=== PATIENT | female | born 1975 | race Two or more races ===

== ENCOUNTER 2024-02-01 08:10 | Outpatient (RCR) | payer MEDICAID, SELFPAY ==
--- NOTE | 2024-02-01 09:04 | CTCFLWUP_ITS ---
[facility] [address] [place], [place] [address] FOLLOW-UP NOTE Date: 02/01/2024 MR#: [id number] Name: SADI TOLEDO : 1975 Dx: C50.312 Malignant neoplasm of lower-inner quadrant of left female breast Identification patient with stage IIa T2N0 triple negative sized tumor 3.3 cm 4 sentinel lymph nodes negative for mets. Completed 4 cycles of AC Taxotere and radiation therapy completed 6300 cGy including E boost to left breast on 10/31/2015. Had bilateral mammogram 08/28/2023 which was benign recommending yearly follow-up. Examined patient's bilateral breasts which were benign with no suspicious masses. Cosmetically the l eft breast appears quite satisfactory. Will see patient in 6 months and do the annual mammogram. Patient reportedly has colonoscopy pending for routine checks.. Electronically signed by: Jean Marie Klein M.D. 02/01/2024 9:01 AM
== END 2024-02-28 23:59 | disposition home or self-care (01) ==
LOC: SCTC 08:10
PROVIDERS: PCP Nurse Practitioner Primary Care; Referring Provider Physician Assistant; Visit Provider Radiology Therapeutic Radiology
DX: Z08 Encounter for follow-up examination after completed treatment for malignant neoplasm (principal); Z85.3 Personal history of malignant neoplasm of breast; Z92.21 Personal history of antineoplastic chemotherapy; Z92.3 Personal history of irradiation
CPT/HCPCS: 99212; G0463

== ENCOUNTER 2024-08-01 08:23 | Outpatient (RCR) | payer MEDICAID, SELFPAY ==
--- NOTE | 2024-08-01 09:11 | CTCFLWUP_ITS ---
[facility] [address] [place], [place] [address] FOLLOW-UP NOTE Date: 08/01/2024 MR#: [id number] Name: SADI TOLEDO : 1975 Dx: C50.312 Malignant neoplasm of lower-inner quadrant of left female breast Identification. Patient with stage IIa T2 N0 triple negative size tumor 3.3 cm with 4 sentinel lymph nodes negative for mets. Completed 4 cycles of AC Taxotere and ration therapy 6300 cGy including E boost to left breast completed 11-13. Bilateral mammogram 08/28/2023 which was benign recommending yearly follow-up. Patient complained of right shoulder pain and right arm swelling which appeared unremarkable on my exam today. She will bring this up with her primary care physician. Breast exam bilateral unremarkable. Patient would like to have port removed which we will arrange for. Follow-up in 6 months with mammogram prior. Electronically signed by: Jean Marie Klein M.D. 08/01/2024 9:09 AM
== END 2024-08-27 23:59 | disposition home or self-care (01) ==
LOC: SCTC 08:23
PROVIDERS: PCP Nurse Practitioner Primary Care; Referring Provider Radiology Therapeutic Radiology; Visit Provider Radiology Therapeutic Radiology
DX: C50.312 Malignant neoplasm of lower-inner quadrant of left female breast (principal); Z17.421 Hormone receptor negative with human epidermal growth factor receptor 2 negative status; Z92.3 Personal history of irradiation; Z92.21 Personal history of antineoplastic chemotherapy; M25.511 Pain in right shoulder; R60.9 Edema, unspecified
CPT/HCPCS: 99212; G0463

== ENCOUNTER → 2024-09-17 | Outpatient (CLI) | payer MEDICAID, SELFPAY ==
--- NOTE | 2024-09-17 08:15 | XR_ITS ---
Examination: Diagnostic digital mammography, bilateral Computer aided detection 3-D breast Tomosynthesis, bilateral Date and time of exam: September 17, 2024 0812 hours Compared to mammograms dating to October 10, 2017 INDICATIONS: Personal history left breast cancer Technique: Nonmagnified MLO, CC views of the breasts to been obtained, reconstructed from 3-D Tomosynthesis images. R2 computer aided detection program utilized for evaluation of suspicious masses and/or abnormal calcifications. 3-D Tomosynthesis images obtained. Findings: Scattered areas of fibroglandular density. Extensive scar formation surgical clips inner left breast and left axilla again noted Benign calcifications. No interval suspicious masses Impression: BI-RADS Category 2: Benign findings Recommend yearly follow-up mammography.
== END | disposition home or self-care (01) ==
PROVIDERS: PCP Radiology Therapeutic Radiology; Referring Provider Radiology Therapeutic Radiology; Visit Provider Radiology Therapeutic Radiology
DX: R92.323 Mammographic fibroglandular density, bilateral breasts (principal); R92.1 Mammographic calcification found on diagnostic imaging of breast
CPT/HCPCS: 77062; 77066; G0279

== ENCOUNTER 2024-10-01 10:10 | Outpatient (AMB) | payer MEDICAID, SELFPAY ==
[2024-10-01 10:18] VITALS: BP 137/85; PULSE 67; RESP 18; TEMP 36.2; O2SAT 97; BMI 40.8
--- NOTE | 2024-10-01 10:18 | PD.GSCLVISIT ---
Vital Signs - [facility] 10/01/24 10:18 Height 1.68 m Height Method Measured Weight 114.816 kg Weight Measurement Method Standing Scale BMI 40.8 BP 137/85 H Blood Pressure Source Automatic Cuff Blood Pressure Location Right Upper Arm Position Sitting Respiration 18 Pulse 67 Pulse Source Monitor Temp 97.1 F Temp Source Temporal Artery Scan Pulse Oximetry (%) 97 Oxygen Delivery Method Room Air Med/Allergies Allergies & Medications Allergies No Known Allergies Allergy (Verified 10/01/24 10:19) Medication Reconciliation ergocalciferol (vitamin D2) 1,250 mcg (50,000 unit) capsule 1,250 mcg PO QWEEK 12/31/21 [History Confirmed 10/01/24] thyroid (pork) 30 mg tablet (DIAMOND POWDER TECHNICIAN Thyroid) 30 mg PO DAILY 12/31/21 [History Confirmed 10/01/24] MA Intake Visit Data Collection New Patient or Established: New Patient (never been to [facility]) Seen by Clinical Staff ONLY (RN/MA): No Pain Present Currently: No Resource Room Teacher Required: No PCP or OBGYN visit in last 3 months: Yes Hx Now: No Do You Feel Safe at Home: Yes Authorities Contacted: N/A Smoking Status Smoking Status: Never smoker Immunization / Flu Flu Vaccine in the Last 12 Months: Yes Flu Vaccine Exclusion Criteria: Already Received Past Medical History Past Medical History NEUROLOGIC: Negative Neurological Disorders or Seizures CARDIAC: Positive Cardiac Disorders, Cardiac Arrhythmia, Hypercholesterolemia (STOP MED 2017) and Hypertension (STOP MED 2017); Negative Congestive Heart Failure, Edema, Cellulitis or Varicose Veins RESPIRATORY: Negative Chronic Obstructive Pulmonary Disease (COPD) GASTROINTESTINAL: Positive Gastrointestinal Disorders, Gall Bladder Disease (LAP) and Obesity; Negative Hepatitis GENITOURINARY: Negative Genitourinary Disorders or Renal Disease REPRODUCTIVE: Positive Breast Cancer (LEFT BREAST) and Previous Pregnancies (X1) ENDOCRINE: Positive Endocrine Disorders and Hypothyroidism (TAKES MED); Negative Diabetes Mellitus Type 1 HEMATOLOGIC: Negative Blood Disorders OTHER HISTORY: Positive Chemotherapy (2016 DUE LEFT BREAST HAD LUMPECTOMY), Radiation Therapy (2016), Chicken Pox, Cancer and Breast Cancer (LEFT BREAST); Negative Hospitalization, Shingles, Falls, Blood Transfusions, Blood Transfusion Reaction, Anesthesia Reactions, MRSA, Measles or Mumps Family History FAMILY HISTORY: Positive Family Psychiatric Problems (MOTHER (DEPRESSION, ANXIETY)), Family Cardiac Disorders (FATHER (CVA)FATHER,MOTHER,BROTHER (HTN)), Family Gastrointestinal Problems (MOTHER (GALL BLADDER)) and Family Surgery (MOTHER); Negative Family Respiratory Disorders, Family Cancer or Family Anesthesia Reaction Surgical History SURGICAL: Positive Abdominal Surgery, Lumpectomy (LEFT) and Section; Negative Cardiac Surgery or Pacemaker Social History SMOKING STATUS: Smoking status: Never smoker ALCOHOL: Alcohol Intake: Current HOUSING: Housing: House LIVES WITH: Lives With: Spouse HPI HPI Narrative 49F with hypothyroidism, history of breast CA referred for removal of chemoport. Pt states it was placed in 2014, she underwent treatment in 2015 and the last time access was attempted was sometime last year but it was not functioning as it seems to have migrated and potentially flipped. 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 Allergies: NKDA Social hx: Works as [employer] ROS Review of Systems Systems Reviewed: All systems reviewed, normal except as documented Objective/Exam General General Appearance: alert, cooperative and well groomed Chest Chest inspection: Present other (right upper chest healed transverse scar, port palpable medial and superiorly to this incision) Resp Respiratory exam: Absent respiratory distress Assessment & Plan Diagnosis / Problem List (1) Encounter for removal of tunneled central venous catheter (CVC) with port: Status: Acute Assessment & Plan: 49F s/p treatment for breast CA now ready for removal of chemoport. I explained risks of bleeding and infection, pt expressed understanding and prefers to schedule for Sep so she can coordinate with her work Office Procedures GNS Level of Care Nursing/Assessment Patient Status: Initial/New Patient Nursing Assessment/Reassesment: Medication Reconciliation, Update PMH in EMR and Vital Signs Coordination of Care: Complex Care and Chronic Disease 1-5, Consent,records obtained, informed consent, Education Simp Pt/Fam, Lab and Imaging orders, Results/Orders obtained and Staff clarify orders New Patient Charge New Patient Point Assignment: 1104 New Patient Point Charge: DIAMOND POWDER TECHNICIAN Level 3 ([id number]) Patient Portal Questionaires Social History Living Situation History Housing: House Housing Other:: Pt resides w/husb Tobacco History Smoking Status: Never smoker Alcohol History Alcohol Intake: Current Domestic Abuse History Do You Feel Safe at Home: Yes Review of Systems Report any current symptoms Only answer those that you have currently: Past Medical History Past Medical History Have you ever been diagnosed with any of the following: Neurological Problems Seizures: No Cardiology Problems Cardiac Arrhythmia: Yes Hypercholesterolemia: Yes (STOP MED 2017) Congestive Heart Failure: No Edema: No Cellulitis: No Hypertension: Yes (STOP MED 2017) Varicose Veins: No Respiratory Problems Chronic Obstructive Pulmonary Disease (COPD): No Stomache/Intestinal Problems Hepatitis: No Gall Bladder Disease: Yes (LAP) Obesity: Yes Genital/Urinary Problems Renal Disease: No Reproductive Problems Breast Cancer: Yes (LEFT BREAST) Previous Pregnancies: Yes (X1) Endocrine Problems Diabetes Mellitus Type 1: No Hypothyroidism: Yes (TAKES MED) Other Problems Hospitalization: No Shingles: No Falls: No Blood Transfusions: No Blood Transfusion Reaction: No Anesthesia Reactions: No Chemotherapy: Yes (2016 DUE LEFT BREAST HAD LUMPECTOMY) Radiation Therapy: Yes (2016) MRSA: No Chicken Pox: Yes Measles: No Mumps: No Cancer: Yes Surgical History Pacemaker: No
== END 2024-10-01 10:33 | disposition home or self-care (01) ==
LOC: HODSRG 10:10
PROVIDERS: PCP Radiology Therapeutic Radiology; Referring Provider Radiology Therapeutic Radiology; Supervising Provider Surgery; Visit Provider Surgery
DX: Z45.2 Encounter for adjustment and management of vascular access device (principal); Z85.3 Personal history of malignant neoplasm of breast; I10 Essential (primary) hypertension; E78.00 Pure hypercholesterolemia, unspecified; E03.9 Hypothyroidism, unspecified
CPT/HCPCS: 99203; G0463

== ENCOUNTER 2024-10-22 08:46 | Outpatient (AMB) | payer MEDICAID, SELFPAY ==
[2024-10-22 08:55] VITALS: BP 125/83; PULSE 67; RESP 18; TEMP 36.2; O2SAT 97; BMI 40.8
--- NOTE | 2024-10-22 08:55 | PD.GSCLVISIT ---
Vital Signs - [facility] 10/22/24 08:55 Height 1.68 m Height Method Measured Weight 115.212 kg Weight Measurement Method Standing Scale BMI 40.8 BP 125/83 Blood Pressure Source Automatic Cuff Blood Pressure Location Left Upper Arm Position Sitting Respiration 18 Pulse 67 Pulse Source Monitor Temp 97.1 F Temp Source Temporal Artery Scan Pulse Oximetry (%) 97 Oxygen Delivery Method Room Air Med/Allergies Allergies & Medications Allergies No Known Allergies Allergy (Verified 10/22/24 08:56) Medication Reconciliation ergocalciferol (vitamin D2) 1,250 mcg (50,000 unit) capsule 1,250 mcg PO QWEEK 12/31/21 [History Confirmed 10/22/24] thyroid (pork) 30 mg tablet (TITLE ATTORNEY Thyroid) 30 mg PO DAILY 12/31/21 [History Confirmed 10/22/24] MA Intake Visit Data Collection New Patient or Established: Established Patient (seen at [facility] within 3 years) Reason for Visit:: PRE OP PORT REMOVAL Pain Present Currently: No Pain Scale Used: Nelson-[place]/Numerical Teletype Adjuster Required: No PCP or OBGYN visit in last 3 months: Yes Hx Now: No Do You Feel Safe at Home: Yes Authorities Contacted: N/A Smoking Status Smoking Status: Never smoker Immunization / Flu Flu Vaccine in the Last 12 Months: Yes Flu Vaccine Exclusion Criteria: Already Received Past Medical History Past Medical History NEUROLOGIC: Negative Neurological Disorders or Seizures CARDIAC: Positive Cardiac Disorders, Cardiac Arrhythmia, Hypercholesterolemia (STOP MED 2017) and Hypertension (STOP MED 2017); Negative Congestive Heart Failure, Edema, Cellulitis or Varicose Veins RESPIRATORY: Negative Chronic Obstructive Pulmonary Disease (COPD) GASTROINTESTINAL: Positive Gastrointestinal Disorders, Gall Bladder Disease (LAP) and Obesity; Negative Hepatitis GENITOURINARY: Negative Genitourinary Disorders or Renal Disease REPRODUCTIVE: Positive Breast Cancer (LEFT BREAST) and Previous Pregnancies (X1) ENDOCRINE: Positive Endocrine Disorders and Hypothyroidism (TAKES MED); Negative Diabetes Mellitus Type 1 HEMATOLOGIC: Negative Blood Disorders OTHER HISTORY: Positive Chemotherapy (2016 DUE LEFT BREAST HAD LUMPECTOMY), Radiation Therapy (2016), Chicken Pox, Cancer and Breast Cancer (LEFT BREAST); Negative Hospitalization, Shingles, Falls, Blood Transfusions, Blood Transfusion Reaction, Anesthesia Reactions, MRSA, Measles or Mumps Family History FAMILY HISTORY: Positive Family Psychiatric Problems (MOTHER (DEPRESSION, ANXIETY)), Family Cardiac Disorders (FATHER (CVA)FATHER,MOTHER,BROTHER (HTN)), Family Gastrointestinal Problems (MOTHER (GALL BLADDER)) and Family Surgery (MOTHER); Negative Family Respiratory Disorders, Family Cancer or Family Anesthesia Reaction Surgical History SURGICAL: Positive Abdominal Surgery, Lumpectomy (LEFT) and Section; Negative Cardiac Surgery or Pacemaker Social History SMOKING STATUS: Smoking status: Never smoker ALCOHOL: Alcohol Intake: Current HOUSING: Housing: House LIVES WITH: Lives With: Spouse HPI HPI Narrative 49F with hypothyroidism, history of breast CA referred for removal of chemoport. Pt preferred to wait until Sep due to work and reports feeling well with no new complaints ROS Review of Systems Systems Reviewed: All systems reviewed, normal except as documented Objective/Exam General General Appearance: alert, cooperative and well groomed Chest Chest inspection: Present other (right upper chest transverse incision well-healed, port is palpable medial to this) Resp Respiratory exam: Absent respiratory distress Assessment & Plan Diagnosis / Problem List (1) Encounter for removal of tunneled central venous catheter (CVC) with port: Status: Acute Assessment & Plan: 49F with hypothyroidism, history of breast CA referred for removal of chemoport. I explained risks of bleeding and infection. Pt expressed understanding and is agreeable to proceeding Office Procedures GNS Level of Care Nursing/Assessment Patient Status: Established Patient Nursing Assessment/Reassesment: Medication Reconciliation, Update PMH in EMR and Vital Signs Coordination of Care: Complex Care and Chronic Disease 1-5, Consent,records obtained, informed consent, Education Simp Pt/Fam, Results/Orders obtained and Staff clarify orders Established Patient Charge Established Patient Point Assignment: 90 Established Patient Point Charge: EP Level 3 (80-115) Patient Portal Questionaires Social History Living Situation History Housing: House Housing Other:: Pt resides w/husb Tobacco History Smoking Status: Never smoker Alcohol History Alcohol Intake: Current Domestic Abuse History Do You Feel Safe at Home: Yes Review of Systems Report any current symptoms Only answer those that you have currently: Past Medical History Past Medical History Have you ever been diagnosed with any of the following: Neurological Problems Seizures: No Cardiology Problems Cardiac Arrhythmia: Yes Hypercholesterolemia: Yes (STOP MED 2017) Congestive Heart Failure: No Edema: No Cellulitis: No Hypertension: Yes (STOP MED 2017) Varicose Veins: No Respiratory Problems Chronic Obstructive Pulmonary Disease (COPD): No Stomache/Intestinal Problems Hepatitis: No Gall Bladder Disease: Yes (LAP) Obesity: Yes Genital/Urinary Problems Renal Disease: No Reproductive Problems Breast Cancer: Yes (LEFT BREAST) Previous Pregnancies: Yes (X1) Endocrine Problems Diabetes Mellitus Type 1: No Hypothyroidism: Yes (TAKES MED) Other Problems Hospitalization: No Shingles: No Falls: No Blood Transfusions: No Blood Transfusion Reaction: No Anesthesia Reactions: No Chemotherapy: Yes (2016 DUE LEFT BREAST HAD LUMPECTOMY) Radiation Therapy: Yes (2016) MRSA: No Chicken Pox: Yes Measles: No Mumps: No Cancer: Yes Surgical History Pacemaker: No
== END 2024-10-22 09:04 | disposition home or self-care (01) ==
LOC: HODSRG 08:46
PROVIDERS: PCP Radiology Therapeutic Radiology; Referring Provider Radiology Therapeutic Radiology; Supervising Provider Surgery; Visit Provider Surgery
DX: Z45.2 Encounter for adjustment and management of vascular access device (principal); Z85.3 Personal history of malignant neoplasm of breast; I10 Essential (primary) hypertension; E78.00 Pure hypercholesterolemia, unspecified; E03.9 Hypothyroidism, unspecified
CPT/HCPCS: 99213; G0463

== ENCOUNTER 2024-10-31 05:35 | Day surgery (SDC) | payer MEDICAID, SELFPAY ==
[2024-10-26 08:47] VITALS: BMI 40.8
--- NOTE | 2024-10-26 08:56 | EKG_ITS ---
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
[2024-10-26 09:37] LABS: Alanine Aminotransferase 27 U/L (10-49); Albumin, Serum 4.3 gm/dL (3.5-5.0); Albumin/Globulin Ratio 1.3 (1.2-2.2); Alkaline Phosphatase 114 U/L (46-116); Anion Gap 11 (7-16); Aspartate Amino Transferase 30 U/L (0-34); BUN/Creatinine Ratio 16 Ratio (12-20); Bilirubin,Total 0.6 mg/dL (0.3-1.2); Blood Urea Nitrogen 13 mg/dL (9-23); Calcium 10.0 mg/dL (8.3-10.6); Calcium (Corrected) 10.0 mg/dL (8.5-10.1); Carbon Dioxide 28.4 mMol/L (20.0-31.0); Chloride 104 mMol/L (98-107); Creatinine (Component) 0.8 mg/dL (0.6-1.3); Estimated Creatinine Clearance 107.0 mL/min (>60); Globulin 3.3 gm/dL (2.3-3.5); Glucose 97 mg/dL (74-106); Osmolality,Calculated 285 (275-295); Potassium 4.0 mMol/L (3.4-5.1); Sodium 143 mMol/L (136-145); Total Protein 7.6 gm/dL (5.7-8.2); eGFR > 60 See Note
[2024-10-26 09:38] LABS: Basophils # (Auto) 0.1 Thou/mm3 (0.0-0.2); Basophils % (Auto) 1 % (0-2.5); Eosinophils # (Auto) 0.2 Thou/mm3 (0.0-0.5); Eosinophils % (Auto) 4 % (0-10); Hematocrit 41.7 % (36.0-46.0); Hemoglobin 13.8 g/dL (12.0-16.0); Immature Granulocytes Auto 0.02 Thou/mm3 (0.00-0.00); Lymphocytes # (Auto) 2.3 Thou/mm3 (1.0-4.8); Lymphocytes % (Auto) 37 % (10-50); Mean Corpuscular HGB Conc 33.1 g/dl (31.0-37.0); Mean Corpuscular Hemoglobin 30.5 pg (25.0-35.0); Mean Corpuscular Volume 92 fL (80-100); Monocytes # (Auto) 0.5 Thou/mm3 (0.0-0.8); Monocytes % (Auto) 7 % (0-12); Neutrophils # (Auto) 3.2 Thou/mm3 (1.8-7.7); Neutrophils % (Auto) 51 % (37-80); Nucleated Red Blood Cell # 0.00 Thou/mm3 (0.00-0.00); Nucleated Red Blood Cell % 0 /100 WBC (0); Platelet Count 198 Thou/mm3 (140-440); RDW Standard Deviation 43.8 fL (36.4-46.3); Red Blood Count 4.53 Miln/mm3 (4.00-5.20); White Blood Count 6.3 Thou/mm3 (3.6-11.0)
[2024-10-26 09:46] LABS: INR 1.0 (0.9-1.3); Partial Thromboplastin Time 28.8 Seconds (22.0-36.0); Prothrombin Time 10.8 Seconds (9.0-12.2)
[2024-10-31 06:29] VITALS: BP 152/97; PULSE 63; RESP 15; TEMP 36.2; O2SAT 95; BMI 41.0
[2024-10-31 08:34] VITALS: BP 140/80; PULSE 68; RESP 12; TEMP 36.2; O2SAT 100
--- NOTE | 2024-10-31 08:34 | SUR.PHASEI ---
pt received from OR in recovery bay 5. pt asleep but responds to voice, breathing unlabored on oxymask 8l. v/s stable. pt dressing to right upper chest cdi. report received from Earlene URIARTE and Gary DONOVAN.
[2024-10-31 08:40] VITALS: BP 143/79; PULSE 67; RESP 15; TEMP 36.3; O2SAT 100
--- NOTE | 2024-10-31 08:40 | ESOP_ITS ---
Date of Procedure 10/31/24 Pre Op Diagnosis Completion of chemotherapy Post Op Diagnosis Same Procedure Removal of chemoport Findings Chemoport removed intact Procedure Description After discussion of risks and benefits, pt was brought to OR, SCDs were placed and general anesthesia with LMA was induced. Pt received antibiotics and was prepped and draped in the usual sterile fashion. After timeout the existing right upper chest incision was infiltrated with 0.5% marcaine and incised with a #15 blade. The subcutaneous tissue was divided with electrocautery. The port was a few centimeters deep but was easily grasped. The sutures holding in place were cut and the port was removed with the catheter intact. The wound was irrigated and closed in 2 layers, with interrupted 2-0 Vicryl followed by 4-0 Monocryl running subcuticular. The incision was covered with benzoin, Steri- Strips and Tegaderm. Patient was extubated and brought to PACU in stable condition Pathology / specimen Other (Chemo-Port) Estimated Blood Loss 10 Surgeon Maricarmen Laguna MD Surgical Staff Operation Date: 10/31/24 07:30 Case Staff Anesthesiologist: Gary Mix
[2024-10-31 08:45] VITALS: BP 127/83; PULSE 75; RESP 14; TEMP 36.2; O2SAT 97
--- NOTE | 2024-10-31 08:47 | SUR.PHASEI ---
pt able to tolerate oral fluids without difficulty swallowing or nausea/vomiting.
[2024-10-31 08:50] VITALS: BP 138/85; PULSE 68; RESP 14; TEMP 36.1; O2SAT 97
--- NOTE | 2024-10-31 08:50 | PD.SURDS ---
Planned Discharge Date 10/31/24 DS: Providers Provider Primary care physician: GLENDY Walter(ESTHER) Attending Provider on Admission: Maricarmen Laguna MD Attending Provider on DC: Maricarmen Laguna MD Discharging Provider: Maricarmen Laguna MD Diagnosis Discharge Diagnosis (1) Encounter for removal of tunneled central venous catheter (CVC) with port: Status: Acute Problem List Completed Was Problem List Reviewed/Reconciled?: Yes Exam Vital Signs Temp Pulse Resp BP Pulse Ox O2 Flow Rate 97.2 F 75 14 127/83 97 4 10/31/24 08:45 10/31/24 08:45 10/31/24 08:45 10/31/24 08:45 10/31/24 08:45 10/31/24 08:40 Constitutional Constitutional: no acute distress Discharge Plan Plan Patient Disposition: HOME (Self Care) Prescriptions/Referrals Prescriptions/Med Rec: No Action thyroid (pork) [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 PRESS OPERATOR Thyroid] 30 mg tablet 30 mg PO DAILY Patient Comments: TAKE 1 TABLET BY MOUTH ONCE DAILY Referrals: Linda Delaney FNP ([facility]) [Primary Care Provider] - Maricarmen Laguna MD [Physician] - (You will receive a phone call to confirm a follow-up appointment with me in 2 weeks) Patient/Caregiver Discharge Instructions Education Materials: Anesthesia: General Anesthesia, Incision Care Dc, Preventing Surgical Site Infections, [facility] General SDC Instructions- Yi Print Language: Yi Stand Alone Forms: Meghana Award Info., Patient Portal Info Letter Discharge Order Discharge Orders: Discharge (Routine); Ordered 10/31/24 Ordered By: Maricarmen Laguna Results Results: Laboratory Laboratory results: results reviewed PROCEDURES: Procedure Date 10/31/24 Procedures Removal of chemoport
[2024-10-31 09:00] VITALS: BP 124/76; PULSE 65; RESP 14; TEMP 36.2; O2SAT 98
--- NOTE | 2024-10-31 09:30 | SUR.PHASEII ---
pt awake and alert, breathing unlabored on room air. v/s stable. pt dressing to right upper chest cdi. pt able to ambulate to wheelchair with steady gait. d/c instructions given with Christiano in room, all questions answered. pt d/c via wheelchair with all belongings.
--- NOTE | 2024-10-31 10:42 | CHAP ---
Visited briefly with patient giving comfort and prayer.
== END 2024-10-31 09:30 | disposition home or self-care (01) ==
PROVIDERS: Anesthesiology; PCP Nurse Practitioner Primary Care; Referring Provider Surgery; Visit Provider Surgery
PROC: (CPT 36590; principal; 2024-10-31 07:30)
DX: Z45.2 Encounter for adjustment and management of vascular access device (principal); Z01.810 Encounter for preprocedural cardiovascular examination
CPT/HCPCS: 36590; 36415; 80048; 80053; 85025; 85610; 85730; 93005; A4217; A4649; J0131; J0690; J1100; J2250; J2405; J2704; J3010; J3490; J7050

== ENCOUNTER 2024-11-12 10:02 | Outpatient (AMB) | payer MEDICAID, SELFPAY ==
[2024-11-12 10:17] VITALS: BP 142/88; PULSE 64; RESP 18; TEMP 36.1; O2SAT 97; BMI 41.0
--- NOTE | 2024-11-12 10:17 | PD.GSCLVISIT ---
Vital Signs - [facility] 11/12/24 10:17 Height 1.68 m Height Method Measured Weight 115.298 kg Weight Measurement Method Standing Scale BMI 41.0 BP 142/88 H Blood Pressure Source Automatic Cuff Blood Pressure Location Right Upper Arm Position Sitting Respiration 18 Pulse 64 Pulse Source Monitor Temp 97.0 F Temp Source Temporal Artery Scan Pulse Oximetry (%) 97 Oxygen Delivery Method Room Air Med/Allergies Allergies & Medications Allergies No Known Allergies Allergy (Verified 11/12/24 10:19) Medication Reconciliation thyroid (pork) 30 mg tablet (POST CLOSING SPECIALIST Thyroid) 30 mg PO DAILY 12/31/21 [History Confirmed 11/12/24] MA Intake Visit Data Collection New Patient or Established: Established Patient (seen at [facility] within 3 years) Seen by Clinical Staff ONLY (RN/MA): No Reason for Visit:: 2 WEEK PORT REMOVAL POST OP Pain Present Currently: No Pain Scale Used: [place]/[employer] 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 PCP or OBGYN visit in last 3 months: Yes Hx Now: No Do You Feel Safe at Home: Yes Authorities Contacted: N/A Smoking Status Smoking Status: Never smoker Immunization / Flu Flu Vaccine in the Last 12 Months: Yes Flu Vaccine Exclusion Criteria: Already Received Past Medical History Past Medical History NEUROLOGIC: Negative Neurological Disorders or Seizures CARDIAC: Positive Cardiac Disorders, Cardiac Arrhythmia, Hypercholesterolemia (STOP MED 2017) and Hypertension (STOP MED 2017); Negative Congestive Heart Failure, Edema, Cellulitis or Varicose Veins RESPIRATORY: Negative Chronic Obstructive Pulmonary Disease (COPD) GASTROINTESTINAL: Positive Gastrointestinal Disorders, Gall Bladder Disease (LAP) and Obesity; Negative Hepatitis GENITOURINARY: Negative Genitourinary Disorders or Renal Disease REPRODUCTIVE: Positive Breast Cancer (LEFT BREAST) and Previous Pregnancies (X1) ENDOCRINE: Positive Endocrine Disorders and Hypothyroidism (TAKES MED); Negative Diabetes Mellitus Type 1 HEMATOLOGIC: Negative Blood Disorders OTHER HISTORY: Positive Chemotherapy (2016 DUE LEFT BREAST HAD LUMPECTOMY), Radiation Therapy (2016), Chicken Pox, Cancer and Breast Cancer (LEFT BREAST); Negative Hospitalization, Shingles, Falls, Blood Transfusions, Blood Transfusion Reaction, Anesthesia Reactions, MRSA, Measles or Mumps Family History FAMILY HISTORY: Positive Family Psychiatric Problems (MOTHER (DEPRESSION, ANXIETY)), Family Cardiac Disorders (FATHER (CVA)FATHER,MOTHER,BROTHER (HTN)), Family Gastrointestinal Problems (MOTHER (GALL BLADDER)) and Family Surgery (MOTHER); Negative Family Respiratory Disorders, Family Cancer or Family Anesthesia Reaction Surgical History SURGICAL: Positive Abdominal Surgery, Lumpectomy (LEFT), Hysterectomy and Section; Negative Cardiac Surgery or Pacemaker Social History SMOKING STATUS: Smoking status: Never smoker ALCOHOL: Alcohol Intake: Current HOUSING: Housing: House LIVES WITH: Lives With: Spouse HPI HPI Narrative 49F with hypothyroidism, history of breast CA referred for removal of chemoport as it was no longer needed and also could not be accessed at last attempt, removed 10/31/24 here for planned follow up. Pt reports she developed some irritation from the tegaderm and steri strips which has improved since she removed them, and she had one episode of pain after being hugged but overall feels very well with no fever or drainage from the incision ROS Review of Systems Systems Reviewed: All systems reviewed, normal except as documented Objective/Exam General General Appearance: alert, cooperative and well groomed Chest Chest inspection: Present other (right chest incision healed, erythema at the edges of where tegaderm had been but no fluctuance or tenderness) Resp Respiratory exam: Absent respiratory distress Results Chemoport removed intact Assessment & Plan Diagnosis / Problem List (1) Encounter for removal of tunneled central venous catheter (CVC) with port: Status: Acute Assessment & Plan: 49F with hypothyroidism, history of breast CA now s/p removal of chemoport 10/31, recovering well Plan: Follow up as needed Office Procedures GNS Level of Care Nursing/Assessment Patient Status: Established Patient Nursing Assessment/Reassesment: Medication Reconciliation, Orthostatic Vitals, Update PMH in EMR and Vital Signs Coordination of Care: Complex Care and Chronic Disease 1-5, Consent,records obtained, informed consent, Education Simp Pt/Fam, Results/Orders obtained and Staff clarify orders Established Patient Charge Established Patient Point Assignment: 100 Established Patient Point Charge: EP Level 3 (80-115) Patient Portal Questionaires Social History Living Situation History Housing: House Housing Other:: Pt resides w/husb Tobacco History Smoking Status: Never smoker Alcohol History Alcohol Intake: Current Domestic Abuse History Do You Feel Safe at Home: Yes Review of Systems Report any current symptoms Only answer those that you have currently: Past Medical History Past Medical History Have you ever been diagnosed with any of the following: Neurological Problems Seizures: No Cardiology Problems Cardiac Arrhythmia: Yes Hypercholesterolemia: Yes (STOP MED 2016) Congestive Heart Failure: No Edema: No Cellulitis: No Hypertension: Yes (STOP MED 2017) Varicose Veins: No Respiratory Problems Chronic Obstructive Pulmonary Disease (COPD): No Stomache/Intestinal Problems Hepatitis: No Gall Bladder Disease: Yes (LAP) Obesity: Yes Genital/Urinary Problems Renal Disease: No Reproductive Problems Breast Cancer: Yes (LEFT BREAST) Previous Pregnancies: Yes (X1) Endocrine Problems Diabetes Mellitus Type 1: No Hypothyroidism: Yes (TAKES MED) Other Problems Hospitalization: No Shingles: No Falls: No Blood Transfusions: No Blood Transfusion Reaction: No Anesthesia Reactions: No Chemotherapy: Yes (2016 DUE LEFT BREAST HAD LUMPECTOMY) Radiation Therapy: Yes (2016) MRSA: No Chicken Pox: Yes Measles: No Mumps: No Cancer: Yes Surgical History Hysterectomy: Yes Pacemaker: No
== END 2024-11-12 10:34 | disposition home or self-care (01) ==
LOC: HODSRG 10:02
PROVIDERS: PCP Radiology Therapeutic Radiology; Referring Provider Radiology Therapeutic Radiology; Supervising Provider Orthopaedic Surgery Adult Reconstructive Orthopaedic Surgery; Visit Provider Orthopaedic Surgery Adult Reconstructive Orthopaedic Surgery
DX: Z45.2 Encounter for adjustment and management of vascular access device (principal); Z80.3 Family history of malignant neoplasm of breast; E03.9 Hypothyroidism, unspecified
CPT/HCPCS: 99213; G0463